=== PATIENT | male | born 1975 | race Two or more races ===

== ENCOUNTER 2017-11-10 13:50 | Emergency (ER) | payer OTHER ==
[~2017-11-10] VITALS: Ht 182.9 cm; Wt 99.8 kg
[~2017-11-10 13:50] MED LIST: DECADRON P4 MG/ML-1M IH; FLEXERIL 10 MG PO; NORFLEX100 MG PO; TORADOL10 MG PO; TORADOL60 MG IM; ULTRACET PO
== END 2017-11-10 15:36 | disposition home or self-care (01) ==
LOC: ER 13:50
DX: H10.89 Other conjunctivitis (principal)

== ENCOUNTER → 2017-11-13 15:03 | Outpatient (CLI) | payer OTHER ==
[~2017-11-13] VITALS: Ht 182.9 cm; Wt 99.8 kg
== END | disposition home or self-care (01) ==
LOC: PPHC 15:03
DX: R78.9 Finding of unspecified substance, not normally found in blood (principal); I10 Essential (primary) hypertension

== ENCOUNTER → 2017-12-08 07:09 | Outpatient (CLI) | payer OTHER | END | disposition home or self-care (01) | LOC: LAB 07:09 | DX: Z83.3 Family history of diabetes mellitus (principal); E78.2 Mixed hyperlipidemia; I10 Essential (primary) hypertension; R78.89 Finding of other specified substances, not normally found in blood; Z12.11 Encounter for screening for malignant neoplasm of colon; E03.8 Other specified hypothyroidism ==

== ENCOUNTER → 2017-12-08 07:14 | Outpatient (CLI) | payer OTHER | END | disposition home or self-care (01) | LOC: RAD 07:14 | DX: I10 Essential (primary) hypertension (principal) ==

== ENCOUNTER 2017-12-11 11:11 | Outpatient (CLI) | payer OTHER | END 2017-12-11 11:15 | disposition home or self-care (01) | LOC: LAB 11:11 | DX: Z83.3 Family history of diabetes mellitus (principal); E78.2 Mixed hyperlipidemia; I10 Essential (primary) hypertension; R78.89 Finding of other specified substances, not normally found in blood; Z12.11 Encounter for screening for malignant neoplasm of colon; E03.8 Other specified hypothyroidism ==

== ENCOUNTER 2017-12-14 12:28 | Outpatient (CLI) | payer OTHER | END 2017-12-14 12:39 | disposition home or self-care (01) | LOC: NUCLEAR 12:28 | DX: I10 Essential (primary) hypertension (principal) ==

== ENCOUNTER 2018-04-23 07:46 | Outpatient (CLI) | payer OTHER | END 2018-04-23 07:54 | disposition home or self-care (01) | LOC: NUCLEAR 07:46 | DX: I20.0 Unstable angina (principal); E78.2 Mixed hyperlipidemia; I11.9 Hypertensive heart disease without heart failure | CPT/HCPCS: 78452; 93017; A9500 ==

== ENCOUNTER 2018-08-30 17:12 | Outpatient (CLI) | payer OTHER | END 2018-08-30 17:52 | disposition home or self-care (01) | LOC: RAD 17:12 | DX: M79.641 Pain in right hand (principal); M79.642 Pain in left hand; M79.672 Pain in left foot ==

== ENCOUNTER 2019-06-15 09:21 | Outpatient (CLI) | payer OTHER | END 2019-06-15 09:55 | disposition home or self-care (01) | LOC: SONOGRAMA 09:21 → MAMO-SONO 10:15 | DX: R22.1 Localized swelling, mass and lump, neck (principal) ==

== ENCOUNTER 2021-11-01 11:00 | Outpatient (CLI) | payer OTHER | END 2021-11-01 11:15 | disposition home or self-care (01) | LOC: PPH VACUNA 11:00 | PROVIDERS: ATTEND Emergency Medicine Pediatric Emergency Medicine | DX: Z23 Encounter for immunization (principal) ==